=== PATIENT | female | born 1995 | race Caucasian/White ===

== ENCOUNTER 2016-06-04 11:21 | Emergency (ER) | payer OTHER ==
[2016-06-04 11:31] VITALS: BP 127/88; PULSE 95; RESP 16; TEMP 98.1; O2SAT 94
--- NOTE | 2016-06-04 12:02 | UCPHY ---
H & P Patient Type: Established Chief Complaint Nursing Narrative: Painful swelling behind R ear since yesterday. No known cause. Time Seen by Provider: 06/04/16 11:44 HPI/ROS: CHIEF COMPLAINT: Lump behind ear HISTORY OF PRESENT ILLNESS: Patient is a 21-year-old female who comes to the Urgent Care complaining of a lump behind her right ear. She 1st noticed it yesterday. It is slightly tender. It is not erythematous. No draining. No pain with inner ear. Mild headache. No fever. No sore throat. No runny nose. No vision changes. No trauma. REVIEW OF SYSTEMS: Constitutional: denies: chills, fever, recent illness, recent injury EENTM: See HPI Respiratory: denies: cough, shortness of breath Cardiac: denies: chest pain, irregular heart rate, lightheadedness, palpitations Gastrointestinal/Abdominal: denies: abdominal pain, diarrhea, nausea, vomiting, blood streaked stools Genitourinary: denies: dysuria, frequency, hematuria, pain Musculoskeletal: denies: joint pain, muscle pain Skin: denies: lesions, rash, jaundice, bruising Neurological: denies: headache, numbness, paresthesia, tingling, dizziness, weakness Hematologic/Lymphatic: denies: blood clots, easy bleeding, easy bruising Immunologic/allergic: denies: HIV/AIDS, transplant EXAM: GENERAL: Well-appearing, well-nourished and in no acute distress. HEAD: Atraumatic, normocephalic. EYES: Pupils equal round and reactive to light, extraocular movements intact, sclera anicteric, conjunctiva are normal. ENT: the patient has a small 1 x 2 cm fluctuant subcutaneous cyst behind her right ear. Not erythematous. Nontender. TMs normal, nares patent, oropharynx clear without exudates. Moist mucous membranes. NECK: Normal range of motion, supple without lymphadenopathy or JVD. LUNGS: Breath sounds clear to auscultation bilaterally and equal. No wheezes rales or rhonchi. HEART: Regular rate and rhythm without murmurs, rubs or gallops. ABDOMEN: Soft, nontender, normoactive bowel sounds. No guarding, no rebound. No masses appreciated. BACK: No CVA tenderness, no spinal tenderness, step-offs or deformities EXTREMITIES: Normal range of motion, no pitting or edema. No clubbing or cyanosis. NEUROLOGICAL: Cranial nerves II through XII grossly intact. Normal speech, normal gait. 5/5 strength, normal movement in all extremities, normal sensation PSYCH: Normal mood, normal affect. SKIN: Warm, dry, normal turgor, no visible rashes or lesions. Source: Patient - Personal History LMP (Females 10-55): 8-14 Days Ago Current Tetanus Diphtheria and Acellular Pertussis (TDAP): Yes Tetanus Vaccine Date: within 10 years - Medical/Surgical History Hx Asthma: No Hx Chronic Respiratory Disease: No Hx Diabetes: No Hx Cardiac Disease: No Hx Renal Disease: No Hx Cirrhosis: No Hx Alcoholism: No Hx HIV/AIDS: No Hx Splenectomy or Spleen Trauma: No Other PMH: endometriosis, tachycardia, mitral and tricuspid valve regurgitation - Family History Significant Family History: No pertinent family hx - Social History Smoking Status: Never smoked Alcohol Use: Sober Drug Use: None Constitutional: Initial Vital Signs Temperature (C) 36.7 C 06/04/16 11:23 Heart Rate 95 06/04/16 11:23 Respiratory Rate 16 06/04/16 11:23 Blood Pressure 127/88 H 06/04/16 11:23 O2 Sat (%) 94 06/04/16 11:23 O2 Delivery Mode Room Air Allergies/Adverse Reactions: amoxicillin Allergy (Mild, Verified 06/04/16 11:30) Rash cefazolin sodium [From Ancef] Allergy (Mild, Verified 06/04/16 11:30) Rash Home Medications: Medication Instructions Recorded Ortho Evra 06/04/16 Medical Decision Making Procedures: Bedside ultrasound: Bedside ultrasonography was performed with a linear probe and found a fluid filled cystic mass behind the patient's right ear. Patient's fluid filled mass was tapped with an 18 gauge needle. 2 cc of cloudy serosanguineous fluid removed his sent to the lab for cultures. The cystic structure collapsed. ED Course/Re-evaluation: patient tolerated the procedure well. I suspect that she has a preauricular cyst. The fluid looks slightly cloudy and serosanguineous. We will send for cultures. The skin itself does not look infected. We will defer antibiotics at this time. I will have her follow up with ENT. Differential Diagnosis: Partial list of the Differential diagnosis considered include but were not limited to; lymph node, cyst, hematoma and although unlikely based on the history and physical exam, I also considered otitis externa, malignant otitis periauricular cellulitis. I discussed these differential diagnoses and the plan with the patient as well as the usual and expected course. The patient understands that the diagnosis is provisional and that in medicine we are not always correct and that further workup is often warranted. Usual and customary warnings were given. All of the patient's questions were answered. The patient was instructed to return to the emergency department should the symptoms at all worsen or return, otherwise to followup with the physician as we discussed. - Data Points Laboratory Results: 06/04/16 12:05 Fluid Source TNP Fluid Color TNP Fluid Appearance TNP Fluid WBC TNP Fluid RBC TNP Departure - Departure Disposition: Home, Routine, Self-Care Clinical Impression: Cyst Condition: Fair Instructions: Cyst (ED) Referrals: NONE *PRIMARY CARE P,. [Primary Care Provider] - As per Instructions Cornelius Cherry MD [Medical Doctor] - As per Instructions - PQRS PQRS Measurement: Not applicable
== END 2016-06-04 12:15 | disposition home or self-care (01) ==
LOC: CED 11:21
PROC: 0H9 Skin and Breast, Drainage (ICD-10-PCS; principal; 2016-06-04)
DX: L72.0 Epidermal cyst (principal)
CPT/HCPCS: 99214-PO; G0463-PO